=== PATIENT | male | born 1995 | race Caucasian/White ===

== ENCOUNTER 2017-06-12 19:35 | Emergency (ER) | payer BC ==
[~2017-06-12] VITALS: Ht 185.4 cm; Wt 135.2 kg
[2017-06-12 19:38] VITALS: Ht 185.4 cm; Wt 135.2 kg
[2017-06-12] MEDS ORDERED: ACETAMINOPHEN 500 MG TAB PO STA (19:50)
--- NOTE | 2017-06-12 20:05 | EMERGENCY ROOM VISIT NOTE ---
History Report prepared by Audrey: Irene Katz Under the Supervision of: Dr. Nacho Berry M.D. First contact with patient: 19:42 Chief Complaint: FEVER Stated Complaint: FEVER,ACHES,NUMBNESS History of Present Illness The patient is a 22 year old male who presents to the Emergency Room with complaints of persistent fever starting yesterday morning. He has been alternating between feeling hot and cold. He has had chills. He tried taking Advil a couple hours ago. He reports intermittent numbness in his hands and feet which lasts for a couple seconds. He denies any sore throat, ear pain, cough, urinary symptoms, diarrhea, abdominal pain, change in weight, rash, or leg pain. The patient goes to [facility]. There was recently a bed bug outbreak in his dorm. He denies any sick contacts. He does not have any medical problems. He did not receive his flu vaccine this year. Source of History: patient Onset: yesterday morning Position: other (global) Quality: other (fever) Timing: other (persistent) Associated Symptoms: + chills, + numbness, No sorethroat, No cough, No abdominal pain, No diarrhea, No urinary symptoms, No rash Note: Pt denies ear pain, leg pain, change in weight. Review of Systems All systems have been listed, reviewed, and are negative other than those previously mentioned. Please see Additional Medical History Sheet. Past Medical & Surgical Medical Problems: (1) No significant medical problems Surgical Problems: (1) No significant past surgical history Family History Diabetes mellitus Hypertension Kidney disease Kidney stones Social History Smoking Status: Never Smoker Alcohol Use: none Marital Status: single Housing Status: lives with roommate Occupation Status: student Current/Historical Medications Scheduled Multivitamin (Multivitamin), 1 TAB PO DAILY Allergies Coded Allergies: No Known Allergies (Unverified , NONE, 03/18/14) Physical Exam Vital Signs Date Time Temp Pulse Resp B/P (MAP) Pulse Ox O2 Delivery O2 Flow Rate FiO2 06/12/17 21:34 36.9 79 18 142/63 97 Room Air 06/12/17 19:38 38.0 106 18 188/101 98 Room Air Physical Exam GENERAL: Patient awake, alert, oriented x 3. Patient follows commands. Patient does not appear toxic. Patient is adequately hydrated and well- nourished. SKIN: Patient is slightly warm and diaphoretic. HEENT: Normal head, pupils equal, reactive to light and accommodation. Increased wax right ear, left ear normal. Oral cavity and posterior pharynx appear normal. Neck: Without adenopathy, no neck vein distention. LUNGS: Clear to auscultation. No wheezes, no rales, no rhonchi. HEART: No murmurs. No gallops. No rubs ABDOMEN: No masses, no rebound, no hepatomegaly or splenomegaly. EXTREMITIES: No signs of trauma. No pedal or pretibial edema. No calf or thigh tenderness. NEUROLOGIC: Cranial nerves II-XII within normal limits. No gross motor sensory function deficits. Medical Decision & Procedures ER Provider Diagnostic Interpretation: X ray results are stated below per my interpretation and the radiologist's interpretation. CHEST 2 VIEWS ROUTINE HISTORY: 22 years-old Male fever acute fever COMPARISON: None available TECHNIQUE: PA and lateral views of the chest FINDINGS: Cardiomediastinal and hilar silhouettes are within normal limits. No pneumothorax, pleural effusion, focal airspace consolidation or overt pulmonary edema. Mild right hemidiaphragmatic elevation. 30% anterior wedging of what appears to be the T11 vertebral body suggests age-indeterminate injury. IMPRESSION: 1. No acute cardiopulmonary process. 2. 30% anterior wedging of what appears to be the T11 vertebral body suggests age-indeterminate injury. The above report was generated using voice recognition software. It may contain grammatical, syntax or spelling errors. Electronically signed by: Marvel Dixon M.D. 06/12/2017 8:33 PM Dictated Date/Time: 06/12/2017 8:31 PM Laboratory Results 06/12/17 20:07 Red Blood Count 5.01, Mean Corpuscular Volume 90.2, Mean Corpuscular Hemoglobin 30.9, Mean Corpuscular Hemoglobin Concent 34.3, Mean Platelet Volume 10.2, Neutrophils (%) (Auto) 65.1, Lymphocytes (%) (Auto) 20.7, Monocytes (%) (Auto) 12.8, Eosinophils (%) (Auto) 0.2, Basophils (%) (Auto) 1.0, Neutrophils # (Auto ) 3.11, Lymphocytes # (Auto) 0.99, Monocytes # (Auto) 0.61, Eosinophils # (Auto ) 0.01, Basophils # (Auto) 0.05 06/12/17 20:07 Test 06/12/17 20:07 White Blood Count 4.78 K/uL (4.8-10.8) Red Blood Count 5.01 M/uL (4.7-6.1) Hemoglobin 15.5 g/dL (14.0-18.0) Hematocrit 45.2 % (42-52) Mean Corpuscular Volume 90.2 fL (80-100) Mean Corpuscular Hemoglobin 30.9 pg (25-34) Mean Corpuscular Hemoglobin Concent 34.3 g/dl (32-36) Platelet Count 157 K/uL (130-400) Mean Platelet Volume 10.2 fL (7.4-10.4) Neutrophils (%) (Auto) 65.1 % Lymphocytes (%) (Auto) 20.7 % Monocytes (%) (Auto) 12.8 % Eosinophils (%) (Auto) 0.2 % Basophils (%) (Auto) 1.0 % Neutrophils # (Auto) 3.11 K/uL (1.4-6.5) Lymphocytes # (Auto) 0.99 K/uL (1.2-3.4) Monocytes # (Auto) 0.61 K/uL (0.11-0.59) Eosinophils # (Auto) 0.01 K/uL (0-0.5) Basophils # (Auto) 0.05 K/uL (0-0.2) RDW Standard Deviation 42.2 fL (36.4-46.3) RDW Coefficient of Variation 12.8 % (11.5-14.5) Immature Granulocyte % (Auto) 0.2 % Immature Granulocyte # (Auto) 0.01 K/uL (0.00-0.02) Urine Color YELLOW Urine Appearance CLEAR (CLEAR) Urine pH 6.5 (4.5-7.5) Urine Specific [place] 1.014 (1.000-1.030) Urine Protein NEG (NEG) Urine Glucose (UA) NEG (NEG) Urine Ketones NEG (NEG) Urine Occult Blood TRACE (NEG) Urine Nitrite NEG (NEG) Urine Bilirubin NEG (NEG) Urine Urobilinogen NEG (NEG) Urine Leukocyte Esterase NEG (NEG) Urine WBC (Auto) 0 /hpf (0-5) Urine RBC (Auto) 0-4 /hpf (0-4) Urine Hyaline Casts (Auto) 1-5 /lpf (0-5) Urine Epithelial Cells (Auto) 0-5 /lpf (0-5) Urine Bacteria (Auto) NEG (NEG) Anion Gap 4.0 mmol/L (3-11) Est Creatinine Clear Calc Drug Dose 182.8 ml/min Estimated GFR () 136.5 Estimated GFR (Non- 117.8 BUN/Creatinine Ratio 11.0 (10-20) Calcium Level 8.5 mg/dl (8.5-10.1) Monoscreen NEG (NEG) Laboratory results as stated above per my review. Medications Administered Medications (Trade) Dose Ordered Sig/Shahida Route Start Time Stop Time Status Last Admin Dose Admin Acetaminophen (Tylenol Tab) 1,000 mg NOW STAT PO 06/12/17 19:50 06/12/17 19:51 DC 06/12/17 20:03 1,000 MG ED Course 1943: Past medical records reviewed. The patient was evaluated in room A3. A complete history and physical examination was performed. 1950: Acetaminophen 1000 mg PO. 2143: I reevaluated the patient. I discussed today's findings with him and his parents. They verbalized agreement of the treatment plan. I encouraged him to take Tylenol or ibuprofen for his symptoms and extra fluids. He was discharged home. Medical Decision Nurses notes reviewed. Medical history sheet reviewed. Differential diagnosis includes but is not limited to: mononucleosis, influenza, other viral infection , pharyngitis, pneumonia, UTI. Multiple labs and urinalysis were evaluated. Please see above. The patient's mono test is negative. White count is not elevated. The patient is not severely dehydrated. He was encouraged to drink extra fluids and take Tylenol or ibuprofen as needed for aches, pain or fever. Patient appears to have a viral cause for his symptoms. The numbness that he had earlier in the evening most likely is secondary to some hyperventilation. Medication Reconcilliation Current Medication List: was personally reviewed by me Blood Pressure Screening Patient's blood pressure: Elevated blood pressure Blood pressure disposition: Referred to PCP Impression Primary Impression: Viral illness Scribe Attestation The scribe's documentation has been prepared under my direction and personally reviewed by me in its entirety. I confirm that the note above accurately reflects all work, treatment, procedures, and medical decision making performed by me. Departure Information Dispostion Home / Self-Care Referrals Vika Munoz M.D. (PCP) Patient Instructions My [facility] Additional Instructions 600 mg of ibuprofen every 6 hours as needed for aches, pain or fever. OR 1000 mg of Tylenol every 6 hours as needed for aches, pain or fever. Drink extra fluids. REST Follow-up with your family physician or return here in one week if symptoms have not subsided.
[2017-06-12 20:29] LABS: BASO ABS # 0.05 K/uL (0-0.2); COMPLETE YES; EOS % 0.2 %; HEMATOCRIT 45.2 % (42-52); IG% 0.2 %; LYMPH % 20.7 %; LYMPH ABS # 0.99 K/uL (1.2-3.4); MEAN CELL VOLUME 90.2 fL (80-100); MEAN CORPUSCULAR HEMOGLOBIN 30.9 pg (25-34); MEAN CORPUSCULAR HGB CONC 34.3 g/dl (32-36); MEAN PLATELET VOLUME 10.2 fL (7.4-10.4); MONO % 12.8 %; NEUT % 65.1 %; PLATELET COUNT 157 K/uL (130-400); RED BLOOD COUNT 5.01 M/uL (4.7-6.1); WHITE BLOOD COUNT 4.78 K/uL (4.8-10.8)
[2017-06-12 20:33] LABS: URINE APPEARANCE CLEAR (CLEAR); URINE BILIRUBIN NEG (NEG); URINE COLOR YELLOW; URINE EPITHELIAL CELL AUTO 0-5 /lpf (0-5); URINE NITRITE NEG (NEG); URINE PH 6.5 (4.5-7.5); URINE SPECIFIC GRAVITY 1.014 (1.000-1.030); UROBILINOGEN NEG (NEG); ZZUR CULT IF INDIC CLEAN CATCH NO
[2017-06-12 20:34] LABS: MANUAL MICROSCOPIC REQUIRED? NO; REVIEW REQ? NO
--- NOTE | 2017-06-12 20:35 | DIAGNOSTIC IMAGING REPORT ---
CHEST 2 VIEWS ROUTINE HISTORY: 22 years-old Male fever acute fever COMPARISON: None available TECHNIQUE: PA and lateral views of the chest FINDINGS: Cardiomediastinal and hilar silhouettes are within normal limits. No pneumothorax, pleural effusion, focal airspace consolidation or overt pulmonary edema. Mild right hemidiaphragmatic elevation. 30% anterior wedging of what appears to be the T11 vertebral body suggests age-indeterminate injury. IMPRESSION: 1. No acute cardiopulmonary process. 2. 30% anterior wedging of what appears to be the T11 vertebral body suggests age-indeterminate injury. The above report was generated using voice recognition software. It may contain grammatical, syntax or spelling errors. Electronically signed by: Marvel Dixon M.D. 06/12/2017 8:33 PM Dictated Date/Time: 06/12/2017 8:31 PM
[2017-06-12 20:46] LABS: CALCIUM 8.5 mg/dl (8.5-10.1); CREATININE 0.93 mg/dl (0.60-1.40)
[2017-06-12] MEDS ORDERED: MULT-506 PO (21:08)
[2017-06-12 21:34] VITALS: BP 142/63; PULSE 79; TEMP 36.9; O2SAT 97
== END 2017-06-12 22:06 | disposition home or self-care (01) ==
LOC: C.EDB 19:35 → C.EDA 22:06
DX: B34.9 Viral infection, unspecified (principal); Z83.3 Family history of diabetes mellitus; Z82.49 Family history of ischemic heart disease and other diseases of the circulatory system; Z84.1 Family history of disorders of kidney and ureter